=== PATIENT | female | born 1940 | race Caucasian/White ===

== ENCOUNTER → 2024-02-05 09:05 | Outpatient (REF) | payer MEDICARE, BC, SELFPAY | LOC: RAD 09:05 | PROVIDERS: ATTENDING PHYSICIAN Internal Medicine Endocrinology, Diabetes & Metabolism; FAMILY PHYSICIAN Internal Medicine | DX: M81.0 Age-related osteoporosis without current pathological fracture (principal) | CPT/HCPCS: 77080 ==